=== PATIENT | female | born 1960 | race Caucasian/White ===

== ENCOUNTER 2022-10-09 08:28 | Day surgery (SDC) | payer OTHER, SELFPAY ==
[2022-10-03 09:00] VITALS: BMI 28.3
[2022-10-09] VITALS (10 sets, daily range): BP systolic 114–164; BP diastolic 71–88; PULSE 70–87; RESP 12–18; TEMP 35.6–36.9; O2SAT 96–100; BMI 27.4
--- NOTE | 2022-10-09 06:00 | DI.RAD.S_ITS ---
PROCEDURE: XR HIP W PEL IF DONE LT 2V INDICATIONS: INNER OP TECHNIQUE: 2 view(s) of the hip acquired. COMPARISON: [facility], CR, XR HIP W PEL IF DONE LT 2V, 10/09/2022, 12:54. [facility] ([facility]), CR, XR HIP W PEL IF DONE LT 2V, 04/16/2022, 14:08. FINDINGS: Submitted fluoroscopic intraoperative images demonstrate placement of left hip arthroplasty with prosthetic components in expected positions. IMPRESSION: Intraoperative imaging demonstrating placement of left hip arthroplasty with prosthetic components in expected positions. Dictated by: Joseluis BROOKS Interpreted: Eduardo Jon MD on 10/09/2022 at 13:04 Transcribed by: BRNEDA on 10/09/2022 at 13:05 Approved by: Eduardo Jon M.D. on 10/09/2022 at 20:15
[2022-10-09 09:21] LABS: COVID19 -Nasal RAPID Negative (Negative)
[2022-10-09] MEDS: LACTATED RINGERS 1,000 ML 42 ML IV ×2 (09:21→11:51)
[2022-10-09] MEDS: ACETAMINOPHEN 325 MG TABLET 975 MG PO (09:25)
[2022-10-09] MEDS: CELECOXIB 200 MG CAPSULE PO (09:25)
[2022-10-09] MEDS: PREGABALIN 75 MG CAPSULE PO (09:25)
[2022-10-09] MEDS: VANCOMYCIN 1,000 MG/200 ML PIGGYBACK 200 MG IV (09:37)
--- NOTE | 2022-10-09 10:14 | PM.PREOP ---
Pre-operative Note COVID-19 COVID-19 status: Negative Interval Note History & Physical reviewed/Exam performed by Physician: Yes Changes to H&P: No
[2022-10-09] MEDS: CEFAZOLIN 2 GM/100 ML PREMIX 100 ML IV (10:50)
[2022-10-09] MEDS: TRANEXAMIC ACID 1,000 MG VIAL 2000 MG INJ ×2 (10:59→12:38)
--- NOTE | 2022-10-09 11:10 | SUR.OPER ---
Patient supine on padded [place] table, one arm on padded arm board at <90, other arm padded and secured with tape across patient's chest, both legs secured in padded traction boots and positioned per surgeon, padded post at patient's groin, pressure points checked and padded. pt positioned per direction and supervision of Dr Hahn.
[2022-10-09] MEDS: BUPIVACAINE 0.25% (PF) 60 ML, EPINEPHrine 0.3 MG INJ (11:16)
[2022-10-09] MEDS: BUPIVACAINE LIPOSOME 266 MG/20 ML VIAL INJ (11:17)
[2022-10-09] MEDS: SODIUM CHLORIDE IRRIG SOLUTION 250 ML, POVIDONE-IODINE SPONGE STICKS 1 APPLIC IRR (12:39)
--- NOTE | 2022-10-09 13:00 | DI.RAD.S_ITS ---
PROCEDURE: XR HIP W PEL IF DONE LT 2V INDICATIONS: LEFT ANTERIOR HIP TECHNIQUE: 2 view(s) of the hip acquired. COMPARISON: [facility] ([place], XR HIP W PEL IF DONE LT 2V, 04/16/2022, 14:08. FINDINGS: Bones: Patient is status post left hip arthroplasty, with hardware components in expected positions. The hip joint appears congruent. The visualized bony structures appear intact. Soft tissues: Overlying postoperative changes are noted. No suspicious soft tissue densities. IMPRESSION: Expected postsurgical change for left hip arthroplasty. Dictated by: Esther Wu MD, PhD on 10/09/2022 at 14:34 Approved by: Esther Wu MD, PhD on 10/09/2022 at 14:34
[2022-10-09] MEDS: OXYCODONE IR 5 MG TABLET PO ×2 (13:15→16:58)
--- NOTE | 2022-10-09 13:31 | PM.OP.1 ---
Operative Date/Time/Diagnoses Date of procedure: 10/09/22 Time of procedure: 11:00 Pre-op diagnosis: left hip OA Post-op diagnosis: same Procedure & Clinicians Procedure: Left total hip arthroplasty anterior approach Same procedure as scheduled: Yes Indications: The patient has had progressively worsening left hip pain with radiographic changes consistent with arthritis. Non-operative management has failed and the patient has requested total hip replacement. The risks, benefits and alternatives to surgery were discussed with the patient prior to proceeding. Risks discussed included, but were not limited to, failure to relieve pain, leg length discrepancy, dislocation, stiffness, infection, nerve damage, deep venous thrombosis, pulmonary embolism, stroke, coma, heart attack, permanent paralysis and , as well as the potential need for eventual revision of the prosthetic. Surgeon: Geovanna Hahn Flight Attendant/Inflight Supervisor: Bjorn Klein Anesthesia Type: Spinal and Sedation Operative Notes Findings: Severe left hip osteoarthritis, fairly substantial Closure Type: primary Specimen(s): none sent Prosthetic devices, grafts, tissues, transplants, or devices: Hahn and nephew 48 mm R3 cup, neutral poly liner,one 6.5 mm screw, anthology standard offset size 3, 32 x -3 Oxinium head Estimated Blood Loss (mL): 250 Blood products transfused: none Procedure in detail: The patient was brought to the operating room. Patient was carefully positioned in the supine position. Time-out was performed and antibiotics were given. Anesthesia was induced. She was positioned in the on the table in order to allow hyperextension of the hip. The left lower extremity was prepped and draped in a standard sterile fashion. An anterior left hip incision was made 1 fingerbreadth lateral to the anterior superior iliac spine and extended distally towards the greater trochanter. Dissection was carried out through skin and subcutaneous tissues. Superficial hemostasis was achieved. The fascia over the tensor fascia anat was defined and incised with a knife. Two Allis clamps were used to grasp the fascia. Tensor fascia anat was retracted laterally. A gelpi retractor was placed. Dissection was carried out down along the neck. The circumflex vessels were carefully identified and cauterized with the Aqua Mantis. There was good visualization of the femoral neck. A Cobra was placed superior to the neck and the gluteus fibers were carefully stripped from that superior aspect of the capsule. A 2nd retractor was placed along the inferior aspect of the neck. The rectus insertion along the capsule was partially released. A 3rd retractor that was then gently placed over the rim of the acetabulum under the rectus. Capsule was carefully incised and released from the intertrochanteric line circumferentially superior to the mid sagittal line and inferiorly to the mid sagittal line until the lesser trochanter was palpable. A tag stitch was placed both in the superior and inferior limb of the capsular insertion. Along the acetabulum capsule was also released up to the mid sagittal 12:00 position. A portion of the labrum was resected. A saw was used to perform an osteotomy at the level of the intertrochanteric line and the junction of the superior femoral neck leaving approximately 1 finger breath of residual inferior neck above the lesser trochanter. A 2nd cut was made along the femoral neck at the base of the head and a napkin ring of neck was removed. Corkscrew was placed in the femoral head and the head was removed without difficulty. Retractors were then repositioned around the acetabulum. Residual labrum was resected and additional osteophytes were removed. A reamer that was 4 mm below the templated size was placed by hand in the acetabulum and it was reamed to centralize the acetabulum. It was then reamed up to 2 under the templated size and fluoroscopy was brought in to confirm the position of the reaming and depth of reaming. I reamed 1 under the anticipated size . A trial cup was placed and noted that it was appropriately sized and fluoroscopy confirmed position and depth. The component was open and inserted without difficulty fluoroscopic imaging was used to confirm that the cup had been adequately seated and was well positioned. It was further stabilized with a single screw. Neutral poly liner was placed. The cup was tested and noted to be stable. Attention was then directed to the femur. The femur was gently hyperextended additional capsular release was performed as needed in order to allow adequate visualization of the proximal femur with elevation of the femur. Patient was placed in a hyperextended slightly adducted position with maximum external rotation. Box osteotome was used to check for any residual neck as well as sclerotic bone along the trochanter. Showell pepper was placed in the femur. Additional broaching was performed. Canal finder was used to determine the alignment of the canal and position. Size 1 broach was placed. The canal was then appropriately broached up to the templated size as long as there was adequate stability of the broach and serial advancement of the broach without excessive impingement. Specific attention was directed at avoiding varus attempting to direct the distal aspect of the broach more anteriorly and avoiding excessive anteversion. Trial reduction showed acceptable range of motion, good stability, no posterior impingement, mosque of leg length and appropriate lateral shuck. I also hyperflexed the hip and checked that there was no impingement anteriorly and there was good stability with flexion, adduction and internal rotation. Marcaine and Exparel were injected. I checked the stem a size 2 had a little bit of mobility and I broached up to a size 3. The stem was placed without difficulty. Repeat trial reduction and x-ray showed acceptable overall position, length, and no evidence of the femoral fracture. Final head was placed. Wound was meticulously irrigated with normal saline. The hip was reduced and additional Exparel and Marcaine were injected. The capsule was closed with interrupted nonabsorbable sutures. The fascia of the tensor was closed with interrupted and running Vicryl. No drain was placed. Any tensor fascia anat muscle that appeared to be contused or injured which was a minimal amount was carefully resected. Capsule around the tensor was injected with Exparel and Marcaine. The skin was closed with barbed stitches for the subcutaneous tissue and skin. We also used surgical glue. The wound was dressed sterilely. Brief Betadine soak was also used and was meticulously irrigated with normal saline. Patient was transferred to recovery room in satisfactory condition. Complications: none Post-operative Condition: stable Disposition: Acute Care Plan for aftercare: The patient will be maintained on a standard total hip replacement protocol with weight bearing as tolerated and anterior hip precautions. The patient will receive Aspirin and sequential compression devices for DVT prophylaxis. The patient will be discharged home when safe for the home environment.
[2022-10-09] MEDS: LACTATED RINGERS 1,000 ML 125 ML IV (14:00)
--- NOTE | 2022-10-09 17:25 | OT.IP.EVAL ---
Current Diagnoses Unilateral primary osteoarthritis, left hip (10/09/22) Surgery Performed Operation Date: 10/09/22 10:45 Actual Procedures p Total Hip Arthroplasty/Anterior Approach(Left) - Geovanna Hahn MD Past Medical History (Last Updated 10/03/22 @ 09:21 by Paige Nava, JONY) AVM (arteriovenous malformation) brain (2010) COVID-19 virus infection (~2021) HLD (hyperlipidemia) Osteoarthritis Pre-diabetes Surgical History (Last Updated 10/03/22 @ 09:15 by Paige Nava RN) H/O brain surgery (2010) History of spinal fusion Hx of blepharoplasty Occupational Therapy Inpatient Evaluation/Re-Eval M1 PT/OT-IP Prior Functional Status Start: 10/09/22 17:27 Freq: NEEDED Status: Active Protocol: Document 10/09/22 17:27 [facility] (Rec: 10/09/22 17:51 [facility] [id number]) Medical Review Prior Functional Status Communication independent Mobility and Gait Pt having pain when up on her feet. Activities of Daily Living and IADL's Pt having pain during ADl and IADl needs. Prior Functional Level (Other details) Pt's sister flew into [facility] to stay and assist the pt. Social History Household Members spouse,family Living Arrangements House Number of Floors (Floors) One Floor Number of Stairs To Enter/Railing? 2 steps with no rails to enter . Home Environment High Toilet,Walk in Shower Home Equipment Four Wheel Walker,Straight Cane,Shower Seat with Backrest ,Hand Held Shower,Retort Kiln Burner,Grab Bars In Shower M2 OT-IP Current Condition Start: 10/09/22 17:27 Freq: Status: Active Protocol: Document 10/09/22 17:27 [facility] (Rec: 10/09/22 17:51 [facility] [id number]) Occupational Therapy Current Condition Current Condition Evaluation Date 10/09/22 Treatment Diagnosis L HARPAL anterior Diagnosis Onset Date 10/09/22 Post Operative Precautions Anterior Hip Precautions No Hip Extension,No Hip External Rotation M3 OT- IP Subjective and Pain Start: 10/09/22 17:27 Freq: Status: Active Protocol: Document 10/09/22 17:27 [facility] (Rec: 10/09/22 17:51 [facility] [id number]) OT- Subjective Occupational Therapy Visit Type Type Initial Evaluation Visit Start Time 16:35 Visit Stop Time 15:25 Total Visit Minutes 50 Occupational Therapy Visit Comments Patient Comments Surgeon just leaving the room and able to request for OT eval orders as PT not available for PT eval today. Therefore able to go over mobility and ADl needs with pt and her family.Pt wanting to go home and agreed to work with OT. Patient/Caregiver Goals To go home OT Pain Assessment Pain When Pain Assessed At Rest Pain Present Pain Present Denied Pain M4 OT- IP ADL's Start: 10/09/22 17:27 Freq: Status: Active Protocol: Document 10/09/22 17:27 [facility] (Rec: 10/09/22 17:51 [facility] [id number]) OT VFB-Bbit-Eideaob Comments OT Self-Feeding Comments Not at meal time. OT ADL-Grooming Comments OT Grooming Comments Not performed. OT ADL-Oral Care Comments Oral Care Comments Not performed. OT ADL-Dressing General Eval Lower Body Dressing Ability Moderate Assistance Comments OT Dressing Comments Pt needing assist with her sock and vc to dress the affected side first and sit down for safety. Pt able to practice use of sock aid and care giver to assist with LB dressing needs. OT ADL-Toileting General Evaluation Toileting Ability Standby Assistance OT ADL-Bathing Comments OT Bathing Comments Not performed. Pt's sister to assist at home. M5 OT- IP IADL's Start: 10/09/22 17: Freq: Status: Active Protocol: Document 10/09/22 17:27 [facility] (Rec: 10/09/22 17:51 [facility] [id number]) OT-Instrumental Activities of Daily Living Home Safety Awareness Awareness of Need for Assistance at Home Good Awareness Ability to Problem Solve Emergency Able to Problem Solve Situations Home Safety Comments Pt's and sister to assist pt as needed for all needs. M6 OT- IP Functional Cognition Start: 10/09/22 17:27 Freq: Status: Active Protocol: Document 10/09/22 17:27 [facility] (Rec: 10/09/22 17:51 [facility] [id number]) Cognitive Factors Limiting Selfcare Function Cognitive Ability Level of Alertness Alert Patient Orientation Name,Place,Situation Attention Span Ability Capable of Focused Attention, Capable of Sustained Attention Ability to Follow Commands Able to Follow One Step Commands Safety Awareness Underestimates Need for Assistance Cognitive Comments Cognitive Assessment Comments Pt is a little impulsive and not wanting to use a device and suggested to use aFWW but pt insists will be fine with the 4ww. Pt needing reminders to not externally rotate her legs to gila her socks and care giver was shown and tried along with the sock aid. Pt needing reminders not to lead with her left foot while backing up. Pt's and sister both have good understanding of how to assist the pt and be sure to have her slow down and ask for assist as needed. M7 OT- IP Mobility and Balance Start: 10/09/22:27 Freq: Status: Active Protocol: Document 10/09/22: [facility] (Rec: 10/09/22 17:51 [facility] [id number]) OT- Bed Mobility Assessment Supine to Sit Supine to Sit Assist Standby Assistance OT-Transfer Assessment Sit to and From Stand Sit to and from Stand Standby Assistance Transfers Transfer Ability Standby Assistance,Contact Guard Assistance Technique Transfer Destination Bed,Toilet Transfer Technique Stand Step Pivot Devices Transfer Assistive Devices None,Gait Belt,Straight Cane, Front Wheeled Walker,4 Wheeled Walker Comments Mobility Comments Pt needing CGA without a device for steadying and ERIKA with fww and SBA with 4ww. Able to practice a step with pt as has two step with no rail. Able to clarified with outpt PT to have cane in opposite side hand of the surgical leg and go up with the strong side first and then the surgical side for stair climbing. Able to brace pt's left arm to assist as well for her balance. Pt's and sister out of the room and able to instruct them on techinique for the steps. OT- Balance Assessment Sitting Balance and Reactions Static Sitting Balance Ability Normal Dynamic Sitting Balance Ability Normal Standing Balance and Reactions Static Standing Balance Ability Good Dynamic Standing Balance Ability Fair M8 OT- IP Objective Assessments Start: 10/09/22:27 Freq: Status: Active Protocol: Document 10/09/22 17: [facility] (Rec: 10/09/22 17:51 [facility] [id number]) OT-Muscle Tone Assessment Muscle Tone WNL Yes M9 OT- IP Assessment and Plan Start: 10/09/22: Freq: Status: Active Protocol: Document 10/09/22 17:27 [facility] (Rec: 10/09/22 17:51 [facility] [id number]) OT Summary Assessment and Plan Potential Rehabilitation Potential Excellent Analytic Complexity at Evaluation Low Summary OT Impairments Balance,Functional Mobility, Dressing,Bathing Progress Towards Goals Progressing Toward Goals Assessment Summary Pt low complexity and main barrier is pt is a bit impulsive and needing cues to slow down. Able to go over anterior precautions for ADl needs and pt will benefit from use of care giver and sock aid to follow precaution of no external rotation. Pt able to practice with a cane, FWW, and 4ww for mobility needs and how to do steps. Pt has a very supportive family to assist her at home. Pt to go home with assist. Goals Dressing Goal Independent,Retort Kiln Burner,Sock Aid Bathing Goal Independent Shower Transfer Goal Independent Days to Meet Goals 3 Frequency of Treatment Frequency Of Treatment Once a Day Treatment Plan OT Treatment Plan ADL Training,Functional Mobility,Patient/Family Education,Discharge Planning Discharge Recommendations OT Discharge Recommendations Home with Assistance Home Equipment Needs sock aid, fww? Transportation Needs at Discharge Private Vehicle
--- NOTE | 2022-10-09 17:57 | PC.NURSE ---
Pt is A&OX3. VSS, afebrile on RA. Slightly hypertensive SBP 160's. Pt reports numbness improved to BLE's, and reports pain controlled well with medication to R hip. Aquacel dressing c/d/i/. She is able to void this evening, and is able to ambulate with FWW. Per ortho and OT she is cleared for discharge home after evaluation,activity, and reviewing hip precautions.She is anxious to be cleared for discharge home this evening. She verbalizes understanding of activity, site care, medications, s/sx of complication as well as follow up appointments. She is escorted via w/ch to private vehicle with and all of her belongings for discharge home this evening at approximately 1730. Prescription escribed to her pharmacy.
== END 2022-10-09 17:37 | disposition home or self-care (01) ==
LOC: OR 08:29 → AC 08:30
PROVIDERS: Family Provider Family Medicine; PCP Family Medicine; Referring Provider Orthopaedic Surgery; Visit Provider Orthopaedic Surgery
PROC: (CPT 27130; principal; 2022-10-09 10:45)
DX: M16.12 Unilateral primary osteoarthritis, left hip (principal)
CPT/HCPCS: 27130; 73502; 76000; 87635; 97165; 97530; 97535; C1776; C9803; C9290; J0171; J0690; J2250; J2704; J3010

== ENCOUNTER → 2023-05-25 12:25 | Outpatient (CLI) | payer OTHER, SELFPAY ==
[2022-10-09 13:48] VITALS: BMI 27.4
--- NOTE | 2023-05-25 | DI.MRI.S_ITS ---
PROCEDURE: MR LUMBAR SPINE WO CON INDICATIONS: Spinal stenosis, lumbar region TECHNIQUE: Noncontrast sagittal T1 spin echo and T2 fast echo, sagittal STIR, and T2 fast spin echo through the lumbar spine. In cases with scoliosis, additional coronal T2 fast spin echo may be performed. COMPARISON: [facility] MR, MR LUMBAR SPINE WITHOUT CONTRAST, 06/06/2022, 11:45. FINDINGS: Image quality: Excellent. Alignment and Curvature: There is 15.7? right convex scoliosis centered at L3. Grade 1 L4 on L5 anterolisthesis is redemonstrated and unchanged from the study dated June 06, 2022. Bone Marrow: Marrow is of normal overall signal. No acute vertebral body compression fractures. Spinal Cord: Conus medullaris terminates at the L1 level. Visualized cord demonstrates normal signal and size. Paraspinous Soft Tissues: No paravertebral masses. T12-L1: Normal appearance. L1-L2: Mild disc desiccation and height loss. Broad-based disc bulge. Mild facet and ligamentum flavum hypertrophy. No canal stenosis. Mild right foraminal stenosis. Findings are unchanged. L2-L3: Mild disc desiccation and height loss. Mild facet ligamentum flavum hypertrophy. No canal stenosis. Mild right foraminal stenosis. Findings are unchanged. L3-L4: Mild disc desiccation and height loss. Broad-based disc bulge. Mild facet ligamentum flavum hypertrophy. Mild canal stenosis. No foraminal narrowing. Findings are unchanged from the prior study. L4-L5: Anterolisthesis. Severe canal stenosis. Severe facet ligamentum flavum hypertrophy. The degree of canal stenosis is increased from 8 mm on the prior study 2 6 mm on the current study. There is moderate bilateral neural foraminal stenosis which is similar to the prior study. L5-S1: Mild disc desiccation and height loss. Broad-based disc bulge. Mild facet ligamentum flavum hypertrophy. No canal stenosis. No foraminal stenosis. IMPRESSION: 1. Increased canal stenosis at L4-5, now 6 mm in AP diameter when compared with the study dated June 06, 2022. 2. Unchanged bilateral moderate foraminal narrowing at L4-5 when compared with the prior study. Dictated by: Lana Dumas M.D. on 05/27/2023 at 10:24 Approved by: Lana Dumas M.D. on 05/27/2023 at 10:37
== END ==
PROVIDERS: Family Provider Family Medicine; PCP Family Medicine; Referring Provider Physical Medicine & Rehabilitation; Visit Provider Physical Medicine & Rehabilitation
DX: M48.062 Spinal stenosis, lumbar region with neurogenic claudication (principal)
CPT/HCPCS: 72148

== ENCOUNTER 2023-08-05 11:57 | Inpatient (IN) | payer OTHER, SELFPAY ==
[2022-10-09 13:48] VITALS: BMI 27.4
[2023-07-29 08:31] VITALS: BMI 28.3
[2023-08-05] VITALS (13 sets, daily range): BP systolic 118–157; BP diastolic 63–92; PULSE 77–114; RESP 12–18; TEMP 36.2–37; O2SAT 92–99; BMI 28.3
[2023-08-05] MEDS: LACTATED RINGERS 1,000 ML 42 ML IV (12:40)
[2023-08-05] MEDS: ACETAMINOPHEN 325 MG TABLET 975 MG PO (12:43)
--- NOTE | 2023-08-05 14:11 | PM.PREOP ---
Pre-operative Note Interval Note History & Physical reviewed/Exam performed by Physician: Yes Changes to H&P: No
[2023-08-05] MEDS: CEFAZOLIN 2 GM/100 ML PREMIX 100 ML IV ×2 (15:15→22:46)
--- NOTE | 2023-08-05 15:39 | SUR.OPER ---
Prone on spine table, head in foam head support, padded chest and pelvic supports, gel pad at knees, lower legs supported by pillows; nipples, genitalia and toes free of pressure, arms secured on foam padded arm boards at <90 degrees abduction. Tape over blanket at thigh secured to table.
[2023-08-05] MEDS: BUPIVACAINE LIPOSOME 266 MG/20 ML VIAL INJ (15:43)
[2023-08-05] MEDS: BUPIVACAINE 0.25% (PF) 30 ML, EPINEPHrine 0.15 MG INJ (15:44)
--- NOTE | 2023-08-05 17:27 | DI.RAD.S_ITS ---
PROCEDURE: XR LUMBAR SPINE 2-3V INDICATIONS: L4-5 TLIF TECHNIQUE: 2 views of the lumbar spine were acquired. COMPARISON: None. FINDINGS: Intraoperative images demonstrating posterior fusion at L4-5 is present. There is good anatomic alignment. Hardware appears intact as well as intervertebral spacer presence. There is trace retrolisthesis L3 on L4. IMPRESSION: Intraoperative fusion as above. Dictated by: Arianna Roberts M.D. on 08/05/2023 at 21:19 Approved by: Arianna Roberts M.D. on 08/05/2023 at 21:20
--- NOTE | 2023-08-05 17:44 | P.OP_ITS ---
Operative Date/Time/Diagnoses Date of procedure: 08/05/23 Time of procedure: 15:00 Pre-op diagnosis: 1. L4-5 spondylolisthesis 2. L4-5 spinal stenosis with neurogenic claudication Post-op diagnosis: same Procedure & Clinicians Procedure: 1. L4-5 Postero-lateral and posterior interbody fusion 2. L4-5 interbody cage placement. 3. L4-5 decompressive laminectomy with bilateral facetecomies 4. L4-5 Posterior non-segmental instrumentation 5. [place] of bone marrow from iliac crest 6. Utilization of microsurgical technique and operating microscope Same procedure as scheduled: Yes Indications: Patient has been having chronic back pain and worsening lumbar radiculopathy and symptoms of neurogenic claudication. Patient failed multiple conservative management with worsening pain weakness and numbness in her lower extremity. Patient has severe L4-5 spinal stenosis with 7 mm of anterolisthesis correlating with patient's severe back pain and bilateral leg pain weakness and numbness. Patient has been having difficulty performing activity of daily living. After discussing risks benefits of treatment options, patient elected proceed with surgery. Surgeon: Navdeep Hernandez Shade Hanger: Elysia Dias Click Yes if Unassisted: No Anesthesia Type: General Operative Notes Closure Type: primary Prosthetic devices, grafts, tissues, transplants, or devices: Globus CREO MIS screws, Rise cage Estimated Blood Loss (mL): 50 Blood products transfused: none Procedure in detail: Patient was seen in the preoperative area. Risks and benefits of the surgery was discussed with the patient. Informed consent was obtained from the patient and placed in the chart. Surgical site was marked. Patient was taken to the operative room. General anesthesia was administered. Prophylactic antibiotic was given to the patient less than 30 min before the incision was made. Patient was placed into a prone position on the Rodo table. Patient's back was then prepped and draped in the sterile fashion. Time-out was performed at this time. Using AP and lateral C-arm imaging the interval between L4-5 was identified and marked on patient's back. A 2 inch incision 2 in from midline was made on the left side first. The fascia was incised in line with skin incision. Globus MARS retractors was placed inside the incision and docked onto the L4 lamina. Using microsurgical technique and operating microscope, a L4 laminectomy and L4-5 facetectomy was performed using a Kerrison rongeur. The laminectomy and facetectomy was performed in order to decompress patient's cauda equina as well as the nerve roots exiting at the L4-5 level. The disc space at L4-5 was identified. And a total diskectomy was performed at L4-5 level. The endplates were decorticated using a rasp and shaver. The total diskectomy and decortication was performed at L4-5 level in order to to accomplish a L4-5 fusion. The local bone from the laminectomy and facetectomy was saved for local bone grafting. After the total diskectomy and decortication was completed, DBM bone graft material was combined with local bone that was harvested earlier. At this time, a separate skin is incision was made over the iliac crest. A Jamshidi needle was inserted into the iliac crest through a separate skin incision. 5 cc of bone marrow aspiration was obtained through the separate skin incision using a Jamshidi needle from the iliac crest. The bone marrow aspiration was combined with local bone and the DBM bone grafting material. The bone grafting material was placed into the L4-5 interbody space along with a expandable cage. The cage was expanded to its maximum height using the torque limiting screwdriver. At this time a mirror image incision was made on the right side. The fascia was incised in line with the skin incision. Globus MARS retractor was inserted and docked onto the L4-5 posterolateral gutter. Using the power drill, posterior- lateral decortication was performed at L4-5 level until bleeding cortical bone was identified. The remaining bone grafting material was placed into the L4-5 po sterior lateral gutter he order to accomplish posterolateral fusion at the L4-5 level. Using the double C-arm technique, pedicle screws were placed into the L4-5 pedicles bilaterally. This was done by placing the Jamshidi needle into the pedicles, then placing the guidewires over the Jamshidi needle, and finally placing the cannulated screws over the guidewires bilaterally. After the pedicle screws were placed, 2 titanium rods was locked into the heads of the pedicle screws using locking caps and torque limiting screwdriver. After all the hardware was placed, and confirmed with AP and lateral C-arm imaging, the wound was then irrigated with sterile normal saline and packed with Ray-Jesus gauze for 3 min to accomplish hemostasis. After the gauze was removed the deep fascia was closed with #1 Vicryl suture. The subcutaneous layer was closed with 2-0 Vicryl. The skin was closed with skin jewels. Patient tolerated the procedure well. There were no complications. The Operation could not have been safely performed without compromising the technical result or length of the procedure, without the assistance of a skilled salesperson surgical appliances. The salesperson surgical appliances was medically necessary for proper positioning, retraction and manipulation of instruments, proper exposure, surgical preparation, and manipulation of tissue. Complications: none Post-operative Condition: stable Disposition: PACU Plan for aftercare: Admit to inpatient hospital
[2023-08-05] MEDS: OXYCODONE IR 5 MG TABLET PO ×2 (18:09→18:40)
[2023-08-05] MEDS: ONDANSETRON 4 MG/2 ML INJ IV (18:10)
[2023-08-05] MEDS: HYDROMORPHONE 1 MG INJ IV ×4 (18:13→18:28)
[2023-08-05] MEDS: HYDROMORPHONE 0.5 MG INJ IV ×2 (19:20→22:49)
[2023-08-05] MEDS: LACTATED RINGERS 1,000 ML 125 ML IV (19:20)
[2023-08-05] MEDS: DOCUSATE 100 MG CAPSULE PO (21:18)
[2023-08-05] MEDS: SENNOSIDES 8.6 MG TABLET 17.2 MG PO (21:18)
[2023-08-05] MEDS: METFORMIN HCL 500 MG TABLET PO (21:18)
[2023-08-05] MEDS: ATORVASTATIN 20 MG TABLET 10 MG PO (21:19)
[2023-08-05] MEDS: TRAZODONE 50 MG TABLET 25 MG PO (21:19)
[2023-08-05] MEDS: OXYCODONE IR 10 MG TABLET PO (21:31)
--- NOTE | 2023-08-05 23:14 | PC.NURSE ---
Patient is alert and oriented. Breath sounds CTA with RA sat of 93%. HRR but tachy in low 100's but noted increase as high as 120's when in pain. Initial BP was elevated at 151/91 but has decreased to 118/63 on last recorded VS. Denied nausea and ate food brought in by visitors. BT present and abdomen is soft; has not yet passed flatus. Up to bathroom with walker and 1 assist (initially used 2 assists) and has been able to urinate without difficulty; denied dysuria. Is able to slightly move herself in bed but requested we not reposition q2h if she is asleep as didn't sleep more than 4 hours last night. Dressing to back intact with bright red blood leaking from right side of dressing; reinforced by Brii Castro RN. Is wearing bilateral calf SCD's. CMS is intact bilaterally. Has been having 6-8/10 pain and has been medicated with IV Dilaudid as well as po oxycodone; ice pack applied as tolerated. Fall risk score is high and bed alarm is activated.
[2023-08-06] MEDS: hydrOXYzine pamoate 25 MG CAPSULE PO (01:30)
[2023-08-06 02:15] VITALS: BP 117/64; PULSE 104; RESP 16; TEMP 36.2; O2SAT 95
[2023-08-06] MEDS: LACTATED RINGERS 1,000 ML 125 ML IV (03:53)
[2023-08-06] MEDS: OXYCODONE IR 10 MG TABLET PO ×2 (06:12→09:45)
[2023-08-06 06:18] VITALS: BP 143/67; PULSE 81; RESP 16; TEMP 36.4; O2SAT 94
[2023-08-06] MEDS: CEFAZOLIN 2 GM/100 ML PREMIX 100 ML IV (06:38)
--- NOTE | 2023-08-06 07:45 | P.DS_ITS ---
History of Present Illness History of Present Illness Date Patient Seen: 08/06/23 Time Patient Seen: 07:45 Chief complaint: Back pain Narrative: Pain has been moderate to severe. Patient currently taking oxycodone 10 mg with as needed 0.5 Dilaudid. Pain currently well managed. Patient has her home to assist her. Patient has been out of bed several times used the bathroom. Patient wishes to go home today if safe for home environment. Discharge Providers Provider Date of admission: 08/05/23 11:57 Discharge Date: 08/06/23 Primary care physician: Jace Mcneal MD Consults: 08/05/23 18:59 Consult to Occupational Therapy Evaluate & Treat Comment: Physician Instructions: Evaluate and treat Consult to Physical Therapy Evaluate & Treat Comment: Physician Instructions: Evaluate and Treat Discharge provider: Bjorn Klein PA-C Summary Hospital Course Discharge Diagnosis: 1. L4-5 spondylolisthesis 2. L4-5 spinal stenosis with neurogenic claudication Hospital Course: 1. L4-5 Postero-lateral and posterior interbody fusion 2. L4-5 interbody cage placement. 3. L4-5 decompressive laminectomy with bilateral facetecomies 4. L4-5 Posterior non-segmental instrumentation 5. [place] of bone marrow from iliac crest 6. Utilization of microsurgical technique and operating microscope Same procedure as scheduled: Yes Indications: Patient has been having chronic back pain and worsening lumbar radiculopathy and symptoms of neurogenic claudication. Patient failed multiple conservative management with worsening pain weakness and numbness in her lower extremity. Patient has severe L4-5 spinal stenosis with 7 mm of anterolisthesis correlating with patient's severe back pain and bilateral leg pain weakness and numbness. Patient has been having difficulty performing activity of daily living. After discussing risks benefits of treatment options, patient elected proceed with surgery. Surgeon: Navdeep Hernandez Area Coordinator: Elysia Dias Click Yes if Unassisted: No Anesthesia Type: General Operative Notes Closure Type: primary Prosthetic devices, grafts, tissues, transplants, or devices: Globus CREO MIS screws, Rise cage Estimated Blood Loss (mL): 50 Blood products transfused: none Patient admitted to the hospital for the above-mentioned procedure. Patient consented to the same. Patient underwent L4-L5 fusion August 05, 2023. Patient back in her room recovering well as in stable condition. Patient has been out of bed several times used bathroom. Pain is currently well managed. Patient will be discharged home on oxycodone 10 mg every 4 hours with as needed Dilaudid for breakthrough pain. Limit bending, twisting, lifting. Again she will mobilize with physical therapy this morning. She will be discharged home this afternoon if safe for home environment. Exam Vital Signs (past 8 hours): - 08/06/23 02:15 08/06/23 06:18 Temperature 97.2 F L 97.6 F Pulse Rate 104 H 81 Respiratory Rate 16 16 Blood Pressure 117/64 143/67 H Pulse Oximetry 95 94 Oxygen Flow Rate 0 0 Oxygen Delivery Method Room Air Oxygen Flow Rate 0 Narrative Exam Narrative: Pleasant 63-year-old female resting comfortably in bed in no apparent distress. Motor function is intact bilateral lower extremities. Sensation grossly intact to light touch bilateral lower extremities. 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 (no sooner than 14 dayspost-op) Discharge orders & Medications Discharge Orders: Discharge (Order); Ordered 08/06/23 Ordered By: Bjorn Klein Prescriptions: New acetaminophen 325 mg Tablet 650 mg PO Q6H PRN (Reason: Fever/Mild Pain (1-3)) Qty: 60 0RF polyethylene glycol 3350 17 gram Powder In Packet 17 g PO DAILY PRN (Reason: Constipation) Qty: 14 0RF oxycodone 10 mg Tablet 10 mg PO Q3H PRN (Reason: Pain, Severe (7-10)) Qty: 40 0RF hydromorphone [Dilaudid] 2 mg tablet 2 mg PO Q6H PRN (Reason: pain) Qty: 20 0RF Rx Instructions: One tablet every 6 hours as needed for breakthrough pain oxycodone 10 mg tablet 10 mg PO Q4H PRN (Reason: pain) Qty: 40 0RF Continued simvastatin [Zocor] 20 MG tablet 10 mg PO HS Qty: 0 trazodone 50 MG tablet 25 mg PO HS Qty: 0 metformin 500 mg Tablet 500 mg PO BID estradiol-norethindrone acet 1-0.5 mg tablet 1 tab PO DAILY Discontinued acetaminophen 500 mg Tablet 1,000 mg PO DAILY PRN (Reason: Pain) Follow up/Referrals: Navdeep Hernandez MD [Physician] - As previously scheduled (Follow up with Bjorn Klein PA-C, on 08/21/2022 @ 1:10 pm at [facility] in [place].) Jace Mcneal MD [Primary Care Provider] - Diet/Activity/Treatments Diet: Diet as Tolerated Cold/Heat Therapy: Heat as needed for back pain Skin/Wound/Dressing Care Report to your healthcare provider any signs of infection, such as:: chills, fever, night sweats, unusual drainage and unusual redness Dressing: Okay to shower. Keep dressing clean and dry, if dressing becomes saturated or dirty okay to remove and replace with clean, dry gauze. No bathing or otherwise soaking incisions. Do not apply any creams, lotions, or ointments to incision. Visit Report/Discharge Packet Instructions: DI for Prescription Opioid Use, DI for Transforaminal Lumbar Interbody Fusion Stand Alone Forms: Patient Portal/API, Stroke Signs & Symptoms, Surgery Discharge Discharge Data Primary Care Provider: Jace Mcneal Quality VTE Deep Vein Thrombosis/Pulmonary Embolism Present on Admission: No
[2023-08-06] MEDS: HYDROMORPHONE 2 MG TABLET PO ×2 (07:52→12:12)
[2023-08-06 08:39] VITALS: BP 130/72; PULSE 75; RESP 18; TEMP 36.6; O2SAT 95
[2023-08-06] MEDS: DOCUSATE 100 MG CAPSULE PO (09:43)
[2023-08-06] MEDS: METFORMIN HCL 500 MG TABLET PO (09:43)
[2023-08-06] MEDS: ACETAMINOPHEN 325 MG TABLET 650 MG PO (09:45)
--- NOTE | 2023-08-06 09:48 | OT.IP.EVAL ---
Current Diagnoses Spondylolisthesis, lumbar region (08/05/23) Spinal stenosis, lumbar region with neurogenic claudication (08/05/23) Surgery Performed Operation Date: 08/05/23 13:45 Actual Procedures p L4-5 TLIF - Navdeep Hernandez MD Past Medical History (Last Updated 10/03/22 @ 09:21 by Paige Nava, RN) AVM (arteriovenous malformation) brain (2010) COVID-19 virus infection (~2021) HLD (hyperlipidemia) Osteoarthritis Pre-diabetes Surgical History (Last Updated 07/29/23 @ 09:05 by Paige Nava RN) H/O brain surgery (2010) History of spinal fusion History of total left hip replacement (10/09/22) Hx of bilateral cataract extraction (06/2023) Hx of blepharoplasty Occupational Therapy Inpatient Evaluation/Re-Eval M1 PT/OT-IP Prior Functional Status Start: 08/06/23 09:30 Freq: NEEDED Status: Active Protocol: Document 08/06/23 09:31 [facility] (Rec: 08/06/23 09:48 [facility] [id number]) Medical Review Prior Functional Status Communication Independent Mobility and Gait Did not use a device but had pain. Activities of Daily Living and IADL's Pt had pain with ADL and IADl needs. Social History Household Members spouse,family Living Arrangements House Number of Floors (Floors) Two Floors Number of Stairs To Enter/Railing? 2 steps with no rails to enter and can stay on the main level. Home Environment High Toilet,Walk in Shower Home Equipment Front Wheel Walker,Long Handled Sponge,Starch Mangle Tender,Grab Bars In Shower Additional Social History Comment Pt's spouse or daughter will be home to assist her. M2 OT-IP Current Condition Start: 08/06/23 09:30 Freq: Status: Active Protocol: Document 08/06/23 09:31 [facility] (Rec: 08/06/23 09:48 [facility] [id number]) Occupational Therapy Current Condition Current Condition Evaluation Date 08/06/23 Treatment Diagnosis S/P L4-5 TLIF Diagnosis Onset Date 08/05/23 Post Operative Precautions Lumbar Precautions Log Roll,No Twisting,Limit Bending,Lifting Restriction of 10 lbs,Gait Belt above Incisional Area M3 OT- IP Subjective and Pain Start: 08/06/23 09:30 Freq: Status: Active Protocol: Document 08/06/23 09:31 [facility] (Rec: 08/06/23 09:48 [facility] [id number]) OT- Subjective Occupational Therapy Visit Type Type Initial Evaluation Visit Start Time 09:00 Visit Stop Time 09:27 Total Visit Minutes 27 Occupational Therapy Visit Comments Patient Comments Pt agreed to get up and use the bathroom. Patient/Caregiver Goals To go home. OT Pain Assessment Pain When Pain Assessed At Rest Pain Present Pain Present Pain Reported Location Back Intensity 6 Scale Used Numeric (0 - 10) M4 OT- IP ADL's Start: 08/06/23 09:30 Freq: Status: Active Protocol: Document 08/06/23 09:31 [facility] (Rec: 08/06/23 09:48 [facility] [id number]) OT ADL-Grooming General Evaluation Grooming Ability Independent Areas Needing Assistance Retrieving/Set-up of Grooming Items, Educated to spit into a cup or hinge at her hips. OT ADL-Oral Care General Eval Oral Care Ability Independent OT ADL-Dressing General Eval Lower Body Dressing Ability Maximum Assistance Areas Needing Assistance Socks OT ADL-Toileting General Evaluation Toileting Ability Standby Assistance Comments OT Toileting Comments Pt able use the toilet on her own. Pt educated to stand to wipe would be best to follow her back precautions. Pt states already has wipes at home. Suggested to wear pads so not having to hurry to the bathroom at night. OT ADL-Bathing Comments OT Bathing Comments Pt states to sisal picker a shower chair. M5 OT- IP IADL's Start: 08/06/23 09:30 Freq: Status: Active Protocol: Document 08/06/23 09:31 [facility] (Rec: 08/06/23 09:48 [facility] [id number]) OT-Instrumental Activities of Daily Living Deficits IADL Deficits Identified Deficits Home Safety Awareness Awareness of Need for Assistance at Home Good Awareness Ability to Problem Solve Emergency Able to Problem Solve Situations Medication Management Medication Management No Deficits Identified Money Management Money Management Caregiver Provides Assistance Meal Preparation Meal Preparation Caregiver Provides Assist Cotton Ball Bagger Cotton Ball Bagger Caregiver Provides Assist M6 OT- IP Functional Cognition Start: 08/06/23 09:30 Freq: Status: Active Protocol: Document 08/06/23 09:31 [facility] (Rec: 08/06/23 09:48 [facility] [id number]) Cognitive Factors Limiting Selfcare Function Cognitive Ability Level of Alertness Alert Patient Orientation Name,Age,Birthday,Month,Date, Year,Day of Week,Place, Situation Attention Span Ability Capable of Focused Attention, Capable of Sustained Attention Ability to Follow Commands Able to Follow One Step Commands Memory Description No Deficits Noted Cognitive Comments Cognitive Assessment Comments Pt intact and just needing initial education to keep the fww in front of her. OT- Vision and Hearing OT- Hearing Assessment OT- Hearing Assessment WFL OT- Vision Assessment Visual Acuity Glasses For Reading Visual Attentiveness WFL Occular Pursuits WFL Visual Convergence WFL M7 OT- IP Mobility and Balance Start: 08/06/23 09:30 Freq: Status: Active Protocol: Document 08/06/23 09:31 [facility] (Rec: 08/06/23 09:48 [facility] [id number]) OT- Bed Mobility Assessment Supine to Sit Supine to Sit Assist Standby Assistance OT-Transfer Assessment Sit to and From Stand Sit to and from Stand Standby Assistance Transfers Transfer Ability Standby Assistance Technique Transfer Destination Bed,Chair,Toilet Transfer Technique Stand Step Pivot Devices Transfer Assistive Devices Gait Belt,Front Wheeled Walker Comments Mobility Comments Use of bed rail for log rolling. SBA to stand and vc to push up from the bed to the FWW. SBA with FWW in the room. OT- Balance Assessment Sitting Balance and Reactions Static Sitting Balance Ability Normal Dynamic Sitting Balance Ability Good Standing Balance and Reactions Static Standing Balance Ability Good Dynamic Standing Balance Ability Fair M8 OT- IP Objective Assessments Start: 08/06/23 09:30 Freq: Status: Active Protocol: Document 08/06/23 09:31 [facility] (Rec: 08/06/23 09:48 [facility] [id number]) OT Gross Range of Motion Upper Extremity Range of Motion Assessment Within Functional Limits M9 OT- IP Assessment and Plan Start: 08/06/23 09:30 Freq: Status: Active Protocol: Document 08/06/23 09:31 [facility] (Rec: 08/06/23 09:48 [facility] [id number]) OT Summary Assessment and Plan Potential Rehabilitation Potential Excellent Analytic Complexity at Evaluation Low Summary OT Impairments Pain,Functional Mobility, Dressing,Toileting,Bathing, Toilet Transfers,Shower Transfers Progress Towards Goals Progressing Toward Goals Assessment Summary Pt low complexity and main barriers are steps and pain. Pt has a very supportive daughter and to be able to assist her at home. Pt to sisal picker a shower chair for home use. Pt to go home with assist when medically stable. Goals Dressing Goal Minimal Assistance Toileting Goal Independent Bathing Goal Independent Toilet Transfer Goal Independent Shower Transfer Goal Independent Days to Meet Goals 2 Frequency of Treatment Frequency Of Treatment Once a Day Treatment Plan OT Treatment Plan ADL Training,Functional Mobility,Patient/Family Education,Discharge Planning Discharge Recommendations OT Discharge Recommendations Home with Assistance Home Equipment Needs shower chair Transportation Needs at Discharge Private Vehicle
--- NOTE | 2023-08-06 10:11 | PT.IIE ---
Current Diagnoses Spondylolisthesis, lumbar region (08/05/23) Spinal stenosis, lumbar region with neurogenic claudication (08/05/23) Surgery Performed Operation Date: 08/05/23 13:45 Actual Procedures p L4-5 TLIF - Navdeep Hernandez MD Surgical History (Last Updated 07/29/23 @ 09:05 by Paige Nava, RN) H/O brain surgery (2010) History of spinal fusion History of total left hip replacement (10/09/22) Hx of bilateral cataract extraction (06/2023) Hx of blepharoplasty Medical History (Last Updated 10/03/22 @ 09:21 by Paige Nava RN) AVM (arteriovenous malformation) brain (2010) COVID-19 virus infection (~2021) HLD (hyperlipidemia) Osteoarthritis Pre-diabetes Physical Therapy Inpatient Evaluation/Re-Eval M1 PT/OT-IP Prior Functional Status Start: 08/06/23 09:30 Freq: NEEDED Status: Active Protocol: Document 08/06/23 09:40 MB (Rec: 08/06/23 10:11 MB [id number]) Medical Review Prior Functional Status Medical History Reviewed Yes Communication Independent Mobility and Gait Did not use a device but had pain. Activities of Daily Living and IADL's Pt had pain with ADL and IADl needs. Social History Household Members spouse,family Living Arrangements House Number of Floors (Floors) Two Floors Number of Stairs To Enter/Railing? Set of three steps with on rail to enter and can stay on the main level. Home Environment High Toilet,Walk in Shower Home Equipment Front Wheel Walker,Long Handled Sponge,Business Communications Instructor,Grab Bars In Shower Additional Social History Comment Pt's spouse or daughter will be home to assist her. M2 PT-IP Current Condition Start: 08/06/23 08:12 Freq: NEEDED Status: Active Protocol: Document 08/06/23 09:40 MB (Rec: 08/06/23 10:11 MB [id number]) Physical Therapy Current Condition Current Condition Evaluation Date 08/06/23 Treatment Diagnosis L4-5 Fusion M3 PT-IP Subjective Start: 08/06/23 08:12 Freq: NEEDED Status: Active Protocol: Document 08/06/23 09:40 MB (Rec: 08/06/23 10:11 MB [id number]) Subjective Physical Therapy Visit Type Type Initial Evaluation Visit Start Time 09:40 Visit Stop Time 10:00 Total Visit Minutes 20 Number of RX SPECIALIST Visits 0 Physical Therapy Visit Comments Patient Comments I have a ferry to catch today . Therapy Pain Assessment Pain When Pain Assessed At Rest Pain Present Pain Present Pain Reported Location Back Intensity 6 Scale Used Numeric (0 - 10) Description Acute Pain Behaviors Guarding Pain Management Techniques Distraction,Modification of Treatment,Re-positioning M4 PT-IP Mobility and Gait Start: 08/06/23 08:12 Freq: NEEDED Status: Active Protocol: Document 08/06/23 09:40 MB (Rec: 08/06/23 10:11 MB [id number]) PT-Bed Mobility Assessment Sit to Supine Sit to Supine Standby Assistance,1 Person Assistance Scooting Scooting Up and Down in Bed Independent PT-Transfer Assessment Sit to and From Stand Sit to and from Stand Standby Assistance,1 Person Assistance,Use of Upper Extremities Equipment Transfer Assistive Device Gait Belt,Front Wheeled Walker Orthotic/Prosthetic Devices or Brace: No Comments Mobility Comments Pt requests to return to bed with her preferred position after evaluation: to right side lying. SBA given education about how to best manage getting into her tall bed and she will use two exercise steps to help get her into better position. She does well with stepping up backwards with use of RW and superv to SBA and then she sits down and can move into right side lying without assistance for legs. PT does assist with pillows. Her will assist her at home. Gait Assessment Gait Gait Assistance Required: Standby Assistance,1 Person Assist Distance (Feet) 100 Able to Maintain Weight Bearing Status Yes During Gait Assistive Devices Assistive Device Gait Belt,Front Wheeled Walker Orthotic/Prosthetic Devices or Brace: No Gait Deviations General Gait Pattern Antalgic Factors Limiting Gait Function Factors Limiting Gait Function Pain Comments Gait Comments Slow and steady gait with RW for 70'x1 and 100'x1 Stair Climbing Assessment Evaluation Level of Assist On Stairs Standby Assistance,1 Person Assistance Devices Stair Climbing Assistive Devices Right Railing Technique/Endurance Stair Climbing Direction Ascend and Descend Stair Climbing Technique Step to Step Number of Steps Climbed 3 Query Text: Stair Climbing Set # Repetitions (reps) 1 Comments Stair Climbing Comments PT ed pt to turn and face right rail and to avoid twisting. She performs step-to gait one step and then the next with superv assistance at most and will have her to assist at home. PT-Balance Assessment Sitting Balance and Reactions Static Sitting Balance Ability Good Dynamic Sitting Balance Ability Good Standing Balance and Reactions Static Standing Balance Ability Fair Dynamic Standing Balance Ability Fair Device Used RW M5 PT-IP Objective Assessments Start: 08/06/23 08:12 Freq: NEEDED Status: Active Protocol: Document 08/06/23 09:40 MB (Rec: 08/06/23 10:11 MB [id number]) Orientation Orientation/Cognition Level of Alertness Alert Orientation Name,Age,Birthday,Month,Date, Year,Day of Week,Place, Situation Language Function Ability No Deficits Noted Safety Awareness Understands Safety Issues Memory Description No Deficits Noted Gross Range of Motion Upper Extremity ROM Assessment Within Functional Limits Lower Extremity ROM Assessment Within Functional Limits Strength Upper Extremity Strength Assessment Within Functional Limits Comments Strength Comments PT does not MMT LEs d/t c/o pain Sensation Assessment Sensation Gross Sensation WNL Comments Sensation Comments Pt denies paresthesias M6 PT-IP Treatment Start: 08/06/23 08:12 Freq: NEEDED Status: Active Protocol: Document 08/06/23 09:40 MB (Rec: 08/06/23 10:11 MB [id number]) Physical Therapy Treatment Education Education Provided Precautions M7 PT-IP Assessment and Plan Start: 08/06/23 08:12 Freq: NEEDED Status: Active Protocol: Document 08/06/23 09:40 MB (Rec: 08/06/23 10:11 MB [id number]) PT Summary Assessment and Plan Potential Rehabilitation Potential Good Status of Condition at Evaluation Evolving Summary Impairments Pain Progress Towards Goals Progressing Toward Goals,Safe For Discharge Frequency of Treatment Frequency Of Treatment Discharge Precautions Lumbar Precautions Log Roll,No Twisting,Limit Bending,Lifting Restriction of 10 lbs,Gait Belt above Incisional Area Weight Bearing Status Weight Bearing Status Weight Bear as Tolerated Recommendations To Nursing Amount of Assist Needed Standby Assistance,1 Person Assist Discharge Recommendations PT Discharge Recommendations Home with 24/ Assist Available,Outpatient PT Transportation Needs at Discharge Private Vehicle
--- NOTE | 2023-08-06 11:43 | CM.DANOTE ---
DCP Assessment Note Pt is a 63yo F here following TLIF with Dr. Hernandez PCP Jace Triplett [employer] and self pay FINAL ASSEMBLER reviewed EMR. Per PT/OT, cleared for home with spouse support. Per RN, eager to dc just interested in [employer] pass. FINAL ASSEMBLER entered room and introduced self and role. Pt resting in bed. Pt lives on [place] with spouse (Misael schwratz [phone]), adult son lives [place] [address] and [place] Both children plan to come to support pt in the home. Pt has a walker and spouse is getting shower chair. Pt was able to do appropriate stairs to get into the home. Pt concerned about prescriptions not being ready at [facility] pharmacy when she gets home. Eager for [employer] pass. FINAL ASSEMBLER acted as provider designated assistant project manager and completed priority boarding [employer] pass for transport today to [facility]. FINAL ASSEMBLER spoke with Rhona at [facility]. She confirms pt's scripts will be ready for her today. FINAL ASSEMBLER updated pt, pt appreciative. Plan: home [place]. No additional CM needs at this time. CM team will continue to follow as needed. ANMOL Ayala Discharge Planning/Care Management CM Discharge Assessment Start: 08/06/23 11:04 Freq: Status: Active Protocol: Document 08/06/23 11:39 SL (Rec: 08/06/23 11:43 SL [id number]) Discharge Planning Assessment Assigned Hot Metal Mixer Operator Helper ANMOL Ayala DPOA/Assigned Designee Name Misael Alonzo (spouse) Contact Information [phone] Advance Directives? No History Provided By Patient Prior Living Arrangements House Household Members spouse,family Type of transporation used prior to Drives own vehicle admit Independent with ADL's Yes Is patient alert and oriented? Yes DME Already Rented / Owned FWW / Walker Comment pt getting shower chair for home Barriers to Discharge No Discharge Plan Home Transportation Arrangement spouse in POV Referrals Initiated None needed Whiteboard Updated in Patient Room with Yes name and ext. # of Hot Metal Mixer Operator Helper Review Status In Process Next Review Type Continued Stay Review Pre-Anesthesia Assessment Start: 07/29/23 08:31 Freq: Status: Complete Protocol: Document 07/29/23 08:31 CAB (Rec: 07/29/23 09:19 CAB [id number]) Pre-Anesthesia Assessment Preferred Name Sherrill (Pronouced Patricia) Patient Information Reviewed Via Phone Assessment Assessment Completed With Patient Diagnostic Results BMP/CMP,CBC Comment Outside labs 07/18/23 Outside EKG 09/06/22 scanned Primary Care Provider Jace Mcneal Seen Specialist in Last 12 Months Yes Specialist Seen Orthopedist Primary Language Tamazight Preferred Language Tamazight Vehicle Check In Clerk Required No Height 157.48 cm Weight 70.307 kg Body Mass Index (BMI) 28.3 Hearing Ability Normal Visual Assist Glasses,Magnifying Glass Dentition Type Teeth, Natural Present Barriers to Learning Memory Hx Anesthesia Reactions No Hx Family Anesthesia Reaction No Hx Malignant Hyperthermia No Hx Blood Transfusions No Hx Blood Transfusion Reaction No Anesthesia Review Requested No Access Database Developer No alcohol intake current alcohol intake frequency holidays/special occasions only Smoking Status Former smoker Tobacco type e-cigarettes how long ago did patient quit smoking Quit 2021-currently vaping rarely Substance Use Type does not use Pain Present Pain Reported Musculoskeletal Symptoms Back Pain,Joint Pain,Radiating Pain into Limb History of Falling (Recent or History of No ) Patient is completely paralyzed or No completely immobile Mental Status Oriented to own ability Is patient on oxygen? No Does patient have FIORE/SOB No Hx Sleep Apnea No CPAP/BIPAP use not prescribed Currently Taking a Beta Ac No Can You Climb a Flight of Stairs Without Yes SOB Hx Chest Pain No Hx SOB No Hx Syncope or Dizziness No Anti-Coagulant Therapy No Has a Dietary Aide Cook No Cardiac Testing No Hx Pacemaker/ICD No Pacemaker Rep Required? No Diet Type At Home Regular Dysphagia No Gastrointestinal Symptoms None Chronic UTI No Urinary Catheter Present No Hx Urinary Self Catheterization No Diabetes No: Pre-diabetes HgbA1C 5.8 Date 09/06/22 Patient No Lactating No Hx Drug Resistant Organism No Presence of External or Internal Medical Yes: Cervical hardware, brain Devices screw above right zoroastrianism (AVM repair), left hip Received a COVID vaccine? Yes: x1 booster Marital Status Lives With spouse,family Current Living Arrangements House Number of Floors (Floors) Two Floors Support System Sibling(s),Spouse Does the Patient Have Assistance After Yes Surgery Patient Discharge Plan Description Return Home Comment Pt advised overnight length of stay per surgeon Additional comment Lives on [facility] Feels Safe in Current Environment Yes Been Physically Hurt or Threatened By a No Person in Current Environment Do you have thoughts of harming yourself None or others? Are you currently considering suicide? No Do you have a plan to hurt yourself or No Plan others? Do You Have Any Spiritual Beliefs That No May Affect Your HC Choices? Do You Have Any Cultural Practices That No May Affect Your HC Choices? Comment Druze Who Can We Speak to About Patient's Care Family, friends Identifying Code for Release of Patient Declines to issue Information Health Care Proxy/Next of Kin Misael () Health Care Proxy Emergency Contact Name Misael () Emergency Contact Advance Directives? No Power of Radio Performer No: Has paperwork PAC Instructions Durable medical equipment, Medications to take/avoid, Nasal antibiotic,No ETOH/ petroleum product on skin DOS, NPO,Post-op transportation,Pre -surgical wash,Sensory aids, Sturdy shoes/comfortable clothes,Do not bring valuables and remove jewelry
== END 2023-08-06 14:40 | disposition home or self-care (01) | DRG 455 ==
PROVIDERS: Admitting Provider Orthopaedic Surgery Orthopaedic Surgery of the Spine; Family Provider Family Medicine; PCP Family Medicine; Referring Provider Orthopaedic Surgery Orthopaedic Surgery of the Spine; Visit Provider Orthopaedic Surgery Orthopaedic Surgery of the Spine
PROC: 0SG00AJ Fusion of Lumbar Vertebral Joint with Interbody Fusion Device, Posterior Approach, Anterior Column, Open Approach (ICD-10-PCS; principal; 2023-08-05 13:45)
DX: M43.16 Spondylolisthesis, lumbar region (principal); M48.062 Spinal stenosis, lumbar region with neurogenic claudication; Z96.642 Presence of left artificial hip joint; Z98.1 Arthrodesis status; Z87.891 Personal history of nicotine dependence; Z82.61 Family history of arthritis; Z79.84 Long term (current) use of oral hypoglycemic drugs; E78.5 Hyperlipidemia, unspecified; M41.9 Scoliosis, unspecified
CPT/HCPCS: 72100; 76000; 82962; 97161; 97165; 97535; C9290; J0171; J0330; J0690; J1100; J1170; J2405; J2704; J3010

== ENCOUNTER → 2025-01-07 14:53 | Outpatient (CLI) | payer BC, SELFPAY ==
[2023-08-05 14:23] VITALS: BMI 28.3
--- NOTE | 2025-01-07 14:56 | DI.CT.S_ITS ---
PROCEDURE: CT LUMBAR SPINE WO CON INDICATIONS: SACRAL DYSFUNCTION,HX OF LUMBAR FUSION TECHNIQUE: Noncontrast 3 mm thick sections acquired from the T12 level to the sacrum. Sagittal and coronal reformats were constructed. For radiation dose reduction, the following was used: automated exposure control. COMPARISON: [facility], CT, CT PEL WO CON, 01/07/2025, 15:05. [facility], MR, MR LUMBAR SPINE WO CON, 05/25/2023, 12:37. FINDINGS: Image quality: Excellent. Bones: There is mild rightward curvature with apex at L3. Posterior fusion with laminectomy changes at L4-L5 with intervertebral prosthetic disc. There is improved anatomic alignment compared to previous anterolisthesis. Unchanged appearance disc bulges/desiccation L1-2, L2-3 L3-4 and L5-S1. There is improved appearance of stenosis. Mild stenosis L3-4 is stable. Right foraminal L1-2 bilateral L2-3, minimally progressive, [id number] bilateral, left greater than right foraminal narrowing L4-5 improved compared to prior exam. Multilevel facet and ligamentum hypertrophy are present. Soft tissues: No retroperitoneal masses or hematomas. Visualized aorta is normal in caliber. IMPRESSION: Posterior fusion at with improvement of previous spinal stenosis as foraminal narrowing compared to exam. Dictated by: Arianna Roberts M.D. on 01/10/2025 at 19:34 Approved by: Arianna Roberts M.D. on 01/10/2025 at 19:39
--- NOTE | 2025-01-07 14:56 | DI.CT.S_ITS ---
PROCEDURE: CT PEL WO CON INDICATIONS: SACRAL DYSFUNCTION,HX OF LUMBAR FUSION TECHNIQUE: Noncontrast 3 mm axial sections acquired through the bony pelvis, with coronal and sagittal reformatting. COMPARISON: [facility], MR, MR HIP LEFT WITHOUT CONTRAST, 05/15/2022, 12:29. [facility], CR, XR PELVIS WITH LATERAL HIP LEFT, 11/22/2023, 9:49. FINDINGS: Image quality: Diagnostic. Bones: Patient is status post prior posterior fusion of lower lumbar spine with surgical hardware in place. Pelvic ring is intact. No acute pelvic fracture or dislocation. Prior left total hip arthroplasty with significant beam hardening artifacts. No evidence of gross hardware loosening or failure. No suspicious intraosseous lesions. There is no evidence of sacral insufficiency fracture. Mild bilateral sacroiliac joint osteoarthritic changes are seen with joint space narrowing and subchondral sclerosis. No ankle roses or erosion. Right hip joint osteoarthritic changes are seen without CT evidence of avascular necrosis of femoral head. Soft tissues: There is no pelvic free fluid or free air. No abscess collection. Bladder wall thickness is normal. Bowel wall thickness is normal. No soft tissue mass or drainable fluid collection. No abnormal soft tissue calcifications. No pelvic lymphadenopathy by size criteria. IMPRESSION: 1. Postsurgical changes in lower lumbar spine and left hip as above. Beam hardening artifacts are seen. No gross hardware loosening or failure. No acute pelvic fracture or dislocation. No evidence of sacral insufficiency fracture. 2. Bilateral sacroiliac joint osteoarthritis without ankylosis or bony erosion. Right hip joint osteoarthritis without avascular necrosis of femoral head. No suspicious bony lesions. 3. No gross pelvic soft tissue abnormalities. No free fluid or free air. Dictated by: Bob Pearson M.D. on 01/09/2025 at 23:57 Approved by: Bob Pearson M.D. on 01/10/2025 at 0:01
== END ==
PROVIDERS: Family Provider Family Medicine; PCP Family Medicine; Referring Provider Orthopaedic Surgery Orthopaedic Surgery of the Spine; Visit Provider Orthopaedic Surgery Orthopaedic Surgery of the Spine
DX: M99.04 Segmental and somatic dysfunction of sacral region (principal); M46.1 Sacroiliitis, not elsewhere classified; M16.11 Unilateral primary osteoarthritis, right hip; Z98.1 Arthrodesis status
CPT/HCPCS: 72131; 72192